=== PATIENT | female | born 1935 | race Caucasian/White ===

== ENCOUNTER → 2016-08-17 | Outpatient (CLI) | payer OTHER ==
[~2016-08-17] MED LIST: ACT/35 PO; AMLO5TAB2 PO; ATOR-14 PO; ATROPO OPL; CALC600T9 PO; CALCIUM 600 MG PO; DORZ1SOL6 OP; DORZ2SOL17 OPL; GLUC15002 PO; KLOR CON 20 MEQ PO; LATA0.5S OP; LEVO112T2 PO; LEVO125T4; MULT-506 PO; NITR0.4S UT; OFLO0.3S4 OPL; POTA20TA16 PO; TRIATAB3 PO; VALS40TA2 PO; [UNRECOGNIZED DRUG - OTHER] PO
[2016-08-17 10:42] LABS: T3 TOTAL 0.87 ng/ml (0.60-1.81)
[2016-08-17 10:48] LABS: THYROXINE (T4) 8.8 mcg/dl (4.5-10.9)
== END | disposition home or self-care (01) ==
LOC: C.LABFOXMH 10:04
PROVIDERS: ATTEND Internal Medicine
DX: E03.9 Hypothyroidism, unspecified (principal)

== ENCOUNTER → 2017-01-15 | Outpatient (CLI) | payer OTHER ==
[~2017-01-15] MED LIST changes: -LEVO125T4; +LEVO125T5
[2017-01-15 09:05] LABS: ALT/SGPT 24 U/L (12-78); BLOOD UREA NITROGEN 30 mg/dl (7-18); BUN/CREATININE RATIO 27.3 (10-20); CARBON DIOXIDE 29 mmol/L (21-32); CHLORIDE 109 mmol/L (98-107); CHOLESTEROL 161 mg/dl (0-200); GLUCOSE 88 mg/dl (70-99); POTASSIUM 4.5 mmol/L (3.5-5.1); SODIUM 146 mmol/L (136-145)
[2017-01-15 09:08] LABS: ALB/GLOB RATIO 1.3 (0.9-2); ALKALINE PHOSPHATASE 56 U/L (45-117); AST/SGOT 19 U/L (15-37); CHOLESTEROL/HDL RATIO 2.1; HDL CHOLESTEROL 77 mg/dl; LDL CHOLESTEROL CALCULATED 69 mg/dl; TRIGLYCERIDES 74 mg/dl (0-150); VERY LOW DENSITY LIPOPROT CALC 15 mg/dl
[2017-01-15 09:29] LABS: CALCIUM 9.1 mg/dl (8.5-10.1)
== END ==
LOC: C.LABFOXMH 08:24
PROVIDERS: ATTEND Internal Medicine
DX: E78.5 Hyperlipidemia, unspecified (principal)

== ENCOUNTER → 2017-02-22 | Outpatient (CLI) | payer OTHER ==
[~2017-02-22] MED LIST changes: +LEVO125T4; -LEVO125T5
== END | disposition home or self-care (01) ==
LOC: C.MAMM 13:14
PROVIDERS: ATTEND Internal Medicine
DX: M85.851 Other specified disorders of bone density and structure, right thigh (principal); M85.852 Other specified disorders of bone density and structure, left thigh

== ENCOUNTER → 2017-04-19 | Day surgery (SDC) | payer OTHER ==
[2017-04-14 10:18] VITALS: BMI 33.0
[~2017-04-19] VITALS: Ht 147.3 cm; Wt 71.8 kg
[~2017-04-19] MED LIST changes: -ATROPO OPL; -CALCIUM 600 MG PO; -DORZ2SOL17 OPL; -KLOR CON 20 MEQ PO; -LEVO125T4; +LIDOCAINE HCL 2% 2 ML VIAL (20MG/ML) ONE; +MIDAZOLAM HCL 1 MG/ML 2ML VIAL ONE; -OFLO0.3S4 OPL; +ONDANSETRON INJ 2 MG/ML 2 ML VIAL ONE; +PROPOFOL IV EMULSION 10 MG/ML 20 ML VIAL IV ONE; -[UNRECOGNIZED DRUG - OTHER] PO
[2017-04-19 12:33] VITALS: Ht 147.3 cm; Wt 71.8 kg
--- NOTE | 2017-04-19 13:10 | Endo History and Physical ---
History & Physical Date of Service: Apr 19, 2017. Chief Complaint: HEMATOCHEZIA, CHANGE IN BOWEL HABITS Referring Physician: DR. LESTER LOYD History of Present Illness For colonoscopy Past Surgical History Hx Cardiac Surgery: No Hx Internal Defibrillator: No Hx Pacemaker: No Hx Abdominal Surgery: No Hx of Implantable Prosthesis: No Hx Post-Op Nausea and Vomiting: No Hx Cancer Surgery: Yes (GARETT BSO (KNICKED BOWELS), BCC REMOVALS) Hx Thoracic Surgery: No Hx Orthopedic: Yes (LOWER BACK FUSION) Hx Urinary Tract Surgery: Yes (BLADDER SLING) Family History None Social History Smoking Status: Never Smoker Hx Substance Use: No Hx Alcohol Use: No Allergies Coded Allergies: No Known Allergies (Verified , 04/19/17) Current Medications Reported Home Medications Medications Dose Route/Sig Max Daily Dose Days Date Category Klor-Con (Potassium Chloride) 20 Meq Tabcr 20 Meq PO QAM 04/14/17 Reported Actonel (Risedronate Sod) 35 Mg Tab 35 Mg PO WK 04/14/17 Reported Calcium + D (Calcium Carbonate-Vitamin D) 1 Tab Tab 1 Tab PO BID 04/14/17 Reported Cosopt Oph (Dorzolamide Hcl-Timolol Maleat) 1 Jessie Jessie 1 Drop OP BID 04/14/17 Reported Xalatan 0.005% Oph Jessie (Latanoprost) 0.005 % Jessie 1 Drops OP HS 04/14/17 Reported Synthroid (Levothyroxine Sodium) 112 Mcg Tab 112 Mcg PO QAM 04/14/17 Reported Triamterene/Hctz 37.5-25MG (Triamterene/HCTZ) 1 Tab Tab 0.5 Tab PO BID 09/07/14 Reported Nitrostat (Nitroglycerin) 0.4 Mg Sub 0.4 Mg UT PRN 02/02/13 Reported Norvasc (Amlodipine Besylate) 5 Mg Tab 5 Mg PO QAM 02/02/13 Reported Diovan (Valsartan) 40 Mg Tab 40 Mg PO BID 02/02/13 Reported Glucosamine 1500 Complex (Enwrkzricoi-Hydybgjsmwv-Oci C-) 1 Cap Cap 1 Capsule PO QAM 02/02/13 Reported Lipitor (Atorvastatin) 10 Mg Tab 0.5 Tab PO HS 02/02/13 Reported Multivitamin (Multivitamins) Tab 1 Tab PO QAM 02/02/13 Reported Vital Signs Weight (Kilograms): 71.82 Height (Feet): 4 Height (Inches): 10 Date Time Temp Pulse Resp B/P (MAP) Pulse Ox O2 Delivery O2 Flow Rate FiO2 04/19/17 12:51 36.7 64 18 117/60 (79) 96 Room Air Physical Exam General Appearance: + obese Respiratory/Chest: Respiratory effort: no dyspnea Cardiovascular: Heart Auscultation: RRR Abdomen: Inspection & Palpation: soft Assessment and Plan Rectal bleeding for colonoscopy
--- NOTE | 2017-04-19 13:56 | Discharge Instructions ---
Endoscopy Patient Instructions Date / Procedure(s) Performed Apr 19, 2017. Colonoscopy Allergy Information Coded Allergies: No Known Allergies (Verified , 04/19/17) Discharge Date / Findings Apr 19, 2017. Normal colonoscopy Medication Instructions Stopped Medication(s): TOLD TO JUST TAKE HEART MEDICATIONS Restart Stopped Medication(s): resume meds Reported Home Medications Medications Dose Route/Sig Max Daily Dose Days Date Category Klor-Con (Potassium Chloride) 20 Meq Tabcr 20 Meq PO QAM 04/14/17 Reported Actonel (Risedronate Sod) 35 Mg Tab 35 Mg PO WK 04/14/17 Reported Calcium + D (Calcium Carbonate-Vitamin D) 1 Tab Tab 1 Tab PO BID 04/14/17 Reported Cosopt Oph (Dorzolamide Hcl-Timolol Maleat) 1 Jessie Jessie 1 Drop OP BID 04/14/17 Reported Xalatan 0.005% Oph Jessie (Latanoprost) 0.005 % Jessie 1 Drops OP HS 04/14/17 Reported Synthroid (Levothyroxine Sodium) 112 Mcg Tab 112 Mcg PO QAM 04/14/17 Reported Triamterene/Hctz 37.5-25MG (Triamterene/HCTZ) 1 Tab Tab 0.5 Tab PO BID 09/07/14 Reported Nitrostat (Nitroglycerin) 0.4 Mg Sub 0.4 Mg UT PRN 02/02/13 Reported Norvasc (Amlodipine Besylate) 5 Mg Tab 5 Mg PO QAM 02/02/13 Reported Diovan (Valsartan) 40 Mg Tab 40 Mg PO BID 02/02/13 Reported Glucosamine 1500 Complex (Eyojoixrzbm-Cglxzxeigmj-Fbo C-) 1 Cap Cap 1 Capsule PO QAM 02/02/13 Reported Lipitor (Atorvastatin) 10 Mg Tab 0.5 Tab PO HS 02/02/13 Reported Multivitamin (Multivitamins) Tab 1 Tab PO QAM 02/02/13 Reported Provider Instructions Activity Restrictions - No exercising or heavy lifting for 24 hours. - Do not drink alcohol the day of the procedure. - Do not drive a car or operate machinery until the day after the procedure. - Do not make any important decisions or sign important papers in 24 hours after the procedure. Following Day: - Return to full activity which may include returning to work/school. Diet Start your diet with liquids and light foods (jello, soup, juice, toast). Then eat your usual diet if not nauseated. Treatment For Common After Affects For mild abdominal pain, bloating, or excessive gas: - Rest - Eat lightly - Lie on right side Follow-Up Information Follow-up with DR. LESTER LOYD as scheduled Anesthesia Information What You Should Know You have had a procedure that required some medicine to reduce anxiety and discomfort. This treatment is called moderate sedation. After receiving the treatment, you may be sleepy, but you will be able to breathe on your own. The effects of the treatment may last for several hours. Follow these instructions along with Activity/Diet recommendations noted above: * Do NOT do anything where dizziness or clumsiness would be dangerous. * Rest quietly at home today, then you can be up and about tomorrow. * Have a responsible person stay with you the rest of today. * You may have had an I.V. today. If so, you may take the dressing off later today. Recommendations Call your doctor if: * Trouble breathing * Continuous vomiting for more than 24 hours * Temperature above 101 degrees * Severe abdominal pain or bloating * Pain not relieved by pain medicine ordered * There is increased drainage or redness from any incision * A large amount of rectal bleeding greater than 2-3 tablespoons. (If you had a polyp/s removed or have hemorrhoids, a small amount of blood - from the rectum is to be expected.) * You have any unanswered questions or concerns. IN THE EVENT OF A SERIOUS EMERGENCY, GO TO THE NEAREST EMERGENCY ROOM Your discharge instructions were prepared by provider Mike Mancilla. Patient Instructions Signature Page Danisha Lemons Patient (or Guardian) Signature/Date: I have read and understand the instructions given to me by my caregivers. Caregiver/RN/Doctor Signature/Date: The above-named patient and/or guardian has received patient instructions on this date. + Original Patient Signature Page (only) stays with chart. Please make copy for patient.
--- NOTE | 2017-04-19 13:58 | Anesthesiology Progress Note ---
Anesthesia Post Op Note Date & Time Apr 19, 2017 at 13:58 Vital Signs Pain Intensity: 0 Vital Signs Past 12 Hours Date Time Temp Pulse Resp B/P (MAP) Pulse Ox O2 Delivery O2 Flow Rate FiO2 04/19/17 12:51 36.7 64 18 117/60 (79) 96 Room Air Notes Mental Status: alert / awake / arousable, participated in evaluation Pt Amnestic to Procedure: Yes Nausea / Vomiting: adequately controlled Pain: adequately controlled Airway Patency, RR, SpO2: stable & adequate BP & HR: stable & adequate Hydration State: stable & adequate Anesthetic Complications: no major complications apparent
--- NOTE | 2017-04-19 14:00 | GI REPORT ---
Procedure Date: 04/19/2017 12:50 PM Procedure: Colonoscopy Indications: Rectal bleeding, Change in bowel habits Medicines: Zofran 4 mg IV, Propofol total dose 150 mg IV, Lidocaine 60 mg IV Complications: No immediate complications. Estimated Blood Loss: Estimated blood loss: none. Procedure: Pre-Anesthesia Assessment: - Prior to the procedure, a History and Physical was performed, and patient medications, allergies and sensitivities were reviewed. The patient's tolerance of previous anesthesia was reviewed. - The risks and benefits of the procedure and the sedation options and risks were discussed with the patient. All questions were answered and informed consent was obtained. After I obtained informed consent, the scope was passed under direct vision. Throughout the procedure, the patient's blood pressure, pulse, and oxygen saturations were monitored continuously. The scope was introduced through the anus and advanced to the cecum, identified by appendiceal orifice and ileocecal valve. The colonoscopy was performed without difficulty. The patient tolerated the procedure well. The quality of the bowel preparation was excellent. Findings: The entire examined colon appeared normal. Impression: - The entire examined colon is normal. - No specimens collected. Recommendation: - Discharge patient to home (ambulatory). - Continue present medications. - Return to primary care physician PRN. Mike Mancilla M.D. Mike Mancilla MD 04/19/2017 1:59:52 PM This report has been signed electronically. Note Initiated On: 04/19/2017 12:50 PM I attest to the content of the Intraoperative Record and orders documented therein, exceptions below
[2017-04-19 14:15] VITALS: BP 114/67; PULSE 55; O2SAT 98
== END | disposition home or self-care (01) ==
LOC: C.GI 12:09
PROVIDERS: ATTEND Internal Medicine Gastroenterology
DX: K62.5 Hemorrhage of anus and rectum (principal); R19.4 Change in bowel habit; Z79.899 Other long term (current) drug therapy

== ENCOUNTER → 2017-05-20 | Outpatient (CLI) | payer OTHER ==
[~2017-05-20] MED LIST changes: -LIDOCAINE HCL 2% 2 ML VIAL (20MG/ML) ONE; -MIDAZOLAM HCL 1 MG/ML 2ML VIAL ONE; -ONDANSETRON INJ 2 MG/ML 2 ML VIAL ONE; -PROPOFOL IV EMULSION 10 MG/ML 20 ML VIAL IV ONE
[2017-05-20 09:19] LABS: HEMATOCRIT 41.6 % (37-47); MEAN CELL VOLUME 91.4 fL (80-100); MEAN CORPUSCULAR HGB CONC 33.9 g/dl (32-36); MEAN PLATELET VOLUME 9.9 fL (7.4-10.4); PLATELET COUNT 196 K/uL (130-400); RED BLOOD COUNT 4.55 M/uL (4.2-5.4); WHITE BLOOD COUNT 5.17 K/uL (4.8-10.8)
[2017-05-20 09:26] LABS: BLOOD UREA NITROGEN 23 mg/dl (7-18); BUN/CREATININE RATIO 22.9 (10-20); CALCIUM 9.3 mg/dl (8.5-10.1); CARBON DIOXIDE 29 mmol/L (21-32); CHLORIDE 106 mmol/L (98-107); GLUCOSE 90 mg/dl (70-99); POTASSIUM 3.5 mmol/L (3.5-5.1); SODIUM 140 mmol/L (136-145)
[2017-05-21 18:12] LABS: ALBUMIN 4.4 G/DL (3.8-4.8); GAMMA GLOBULIN 0.6 G/DL (0.8-1.7); TOTAL PROTEIN 6.4 G/DL (6.2-8.3)
== END | disposition home or self-care (01) ==
LOC: C.LABFOXMH 08:46
PROVIDERS: ATTEND Internal Medicine
DX: G60.9 Hereditary and idiopathic neuropathy, unspecified (principal); R06.02 Shortness of breath

== ENCOUNTER → 2017-05-25 | Outpatient (CLI) | payer OTHER | END | disposition home or self-care (01) | LOC: C.LABFOXMH 13:43 | PROVIDERS: ATTEND Internal Medicine | DX: G62.9 Polyneuropathy, unspecified (principal) ==

== ENCOUNTER → 2017-06-23 | Outpatient (CLI) | payer OTHER ==
[2017-06-23 08:55] LABS: BLOOD UREA NITROGEN 21 mg/dl (7-18); BUN/CREATININE RATIO 20.3 (10-20); CALCIUM 9.8 mg/dl (8.5-10.1); CARBON DIOXIDE 30 mmol/L (21-32); CHLORIDE 103 mmol/L (98-107); CREATININE 1.04 mg/dl (0.60-1.20); GLUCOSE 97 mg/dl (70-99); POTASSIUM 4.4 mmol/L (3.5-5.1); SODIUM 139 mmol/L (136-145)
[2017-06-23 08:59] LABS: HEMATOCRIT 44.2 % (37-47); MEAN CELL VOLUME 94.2 fL (80-100); MEAN CORPUSCULAR HEMOGLOBIN 31.6 pg (25-34); MEAN CORPUSCULAR HGB CONC 33.5 g/dl (32-36); MEAN PLATELET VOLUME 9.8 fL (7.4-10.4); PLATELET COUNT 240 K/uL (130-400); RED BLOOD COUNT 4.69 M/uL (4.2-5.4); WHITE BLOOD COUNT 8.84 K/uL (4.8-10.8)
== END ==
LOC: C.LABFOXMH 07:43
PROVIDERS: ATTEND Internal Medicine
DX: R06.02 Shortness of breath (principal)

== ENCOUNTER → 2017-09-08 | Outpatient (CLI) | payer OTHER ==
[2017-09-08 08:47] LABS: HEMATOCRIT 41.3 % (37-47); HEMOGLOBIN 13.9 g/dL (12.0-16.0); MEAN CELL VOLUME 94.1 fL (80-100); MEAN CORPUSCULAR HEMOGLOBIN 31.7 pg (25-34); MEAN CORPUSCULAR HGB CONC 33.7 g/dl (32-36); MEAN PLATELET VOLUME 10.1 fL (7.4-10.4); PLATELET COUNT 216 K/uL (130-400); RED CELL DISTRIBUTION WIDTH SD 45.2 fL (36.4-46.3); WHITE BLOOD COUNT 6.58 K/uL (4.8-10.8)
[2017-09-08 08:59] LABS: ALBUMIN 3.8 gm/dl (3.4-5.0); ALT/SGPT 26 U/L (12-78); BLOOD UREA NITROGEN 21 mg/dl (7-18); CALCIUM 9.3 mg/dl (8.5-10.1); CARBON DIOXIDE 28 mmol/L (21-32); CREATININE 1.06 mg/dl (0.60-1.20); GLUCOSE 90 mg/dl (70-99); POTASSIUM 4.3 mmol/L (3.5-5.1); SODIUM 141 mmol/L (136-145)
[2017-09-08 09:10] LABS: ALKALINE PHOSPHATASE 50 U/L (45-117); AST/SGOT 20 U/L (15-37); TOTAL PROTEIN 6.5 gm/dl (6.4-8.2)
== END | disposition home or self-care (01) ==
LOC: C.LABFOXMH 08:06
PROVIDERS: ATTEND Internal Medicine
DX: I10 Essential (primary) hypertension (principal); E03.9 Hypothyroidism, unspecified

== ENCOUNTER → 2017-09-20 | Outpatient (CLI) | payer OTHER ==
[2017-09-20 08:38] LABS: BLOOD UREA NITROGEN 25 mg/dl (7-18); CALCIUM 9.8 mg/dl (8.5-10.1); CARBON DIOXIDE 29 mmol/L (21-32); CREATININE 1.05 mg/dl (0.60-1.20); GLUCOSE 90 mg/dl (70-99); POTASSIUM 4.3 mmol/L (3.5-5.1); SODIUM 140 mmol/L (136-145)
== END | disposition home or self-care (01) ==
LOC: C.LABFOXMH 08:15
PROVIDERS: ATTEND Internal Medicine
DX: I10 Essential (primary) hypertension (principal)

== ENCOUNTER → 2017-11-01 | Outpatient (CLI) | payer OTHER ==
--- NOTE | 2017-11-01 10:04 | DIAGNOSTIC IMAGING REPORT ---
RETROPERITONEAL COMPLETE CLINICAL HISTORY: HX OF CYSTS,HYPERTENSION COMPARISON STUDY: Renal ultrasound February 24, [address] of the abdomen and pelvis February 02, 2013. FINDINGS: The right kidney measures 9.8 cm in maximal dimension and the left measures 9.9 cm. There is no hydronephrosis. Note is made of a 1.1 cm right sided parapelvic cyst. No calculi or solid masses are identified by sonography. Both ureteral jets were identified. The Doppler ultrasound will be reported separately. IMPRESSION: 1. No hydronephrosis. 2. 1.1 cm right-sided parapelvic cysts. Electronically signed by: Kumar Solis M.D. 11/01/2017 10:03 AM Dictated Date/Time: 11/01/2017 10:01 AM
--- NOTE | 2017-11-01 10:07 | DIAGNOSTIC IMAGING REPORT ---
DOPPLER ULTRASOUND OF THE RENAL ARTERIES CLINICAL HISTORY: HX OF CYSTS,HYPERTENSION COMPARISON STUDY: CT of the abdomen and pelvis February 02, 2013. TECHNIQUE: Grayscale and color and duplex Doppler sonography of the abdominal aorta and bilateral renal arteries was performed. FINDINGS: The peak systolic velocity within the abdominal aorta was 74 cm/s. The peak systolic velocity within the right renal artery was 100 cm/s. The mid bilateral renal arteries were obscured due to overlying bowel gas. The peak systolic velocity within the left renal artery was 83 cm/s. Waveforms within the segmental vessels of both kidneys were unremarkable. Both renal veins were patent. IMPRESSION: No elevated velocities identified within the renal arteries although the mid portions of the bilateral renal arteries were obscured due to overlying bowel gas and therefore this exam is technically nondiagnostic for evaluation for renal artery stenosis. However, no elevated velocities or downstream evidence of renal artery stenosis. Electronically signed by: Kumar Solis M.D. 11/01/2017 10:05 AM Dictated Date/Time: 11/01/2017 10:03 AM
[2017-11-01 12:16] LABS: HEMATOCRIT 37.7 % (37-47); HEMOGLOBIN 12.9 g/dL (12.0-16.0); MEAN CELL VOLUME 92.4 fL (80-100); MEAN CORPUSCULAR HEMOGLOBIN 31.6 pg (25-34); MEAN CORPUSCULAR HGB CONC 34.2 g/dl (32-36); MEAN PLATELET VOLUME 9.8 fL (7.4-10.4); PLATELET COUNT 221 K/uL (130-400); RED CELL DISTRIBUTION WIDTH CV 13.1 % (11.5-14.5); RED CELL DISTRIBUTION WIDTH SD 44.2 fL (36.4-46.3); WHITE BLOOD COUNT 9.43 K/uL (4.8-10.8)
[2017-11-01 12:39] LABS: ALBUMIN 3.8 gm/dl (3.4-5.0); BLOOD UREA NITROGEN 19 mg/dl (7-18); CARBON DIOXIDE 28 mmol/L (21-32); CREATININE 1.05 mg/dl (0.60-1.20); GLUCOSE 87 mg/dl (70-99); POTASSIUM 3.4 mmol/L (3.5-5.1); SODIUM 136 mmol/L (136-145)
[2017-11-01 12:50] LABS: ALKALINE PHOSPHATASE 53 U/L (45-117); ALT/SGPT 22 U/L (12-78); AST/SGOT 21 U/L (15-37); TOTAL PROTEIN 6.8 gm/dl (6.4-8.2)
== END | disposition home or self-care (01) ==
LOC: C.ULTR 08:41
PROVIDERS: ATTEND Internal Medicine
DX: N28.1 Cyst of kidney, acquired (principal); I10 Essential (primary) hypertension

== ENCOUNTER 2023-02-22 10:54 | Observation (INO) ==
[2023-02-22] MEDS ORDERED: ONDANSETRON INJ 2 MG/ML 2 ML VIAL IV STA (11:07)
[2023-02-22] MEDS ORDERED: MoRPHine SULFATE 2 MG/ML CARP IV STA (11:07)
--- NOTE | 2023-02-22 11:09 | Emergency Department Note ---
Impression & Plan Chest pain, D dimer value normal ED Provider Note NAME: ANABEL CANO AGE: 87 SEX: F : 1935 ARRIVES VIA: Ambulance INFORMANT: Patient, EMS ED PROVIDER(S): Varun Butt DO CHIEF COMPLAINT: Chest pain HPI: The patient is an 87-year-old female who presented to the emergency department for an evaluation of chest pain. The patient describes left-sided anterior chest pain that worsens with deep breathing. The patient states that she cannot take a deep breath because of the pain. She has had no vomiting. She denies having any back pain or abdominal pain. The patient started having discomfort last evening. She states that she alerted the staff at [facility] this morning and she was sent directly to the emergency department. She was given multiple doses of aspirin prior to arrival with some improvement of her symptoms. The patient refuses to take aspirin at this time because of a family history of hemorrhagic stroke. ROS: See above HPI for pertinent positives & negatives. A total of 10 systems reviewed and were otherwise negative. PAST MEDICAL HISTORY: See Below PAST SURGICAL HISTORY: See Below FAMILY HISTORY: See Below SOCIAL HISTORY: See Below HOME MEDICATIONS: See Below ALLERGIES: See Below VITALS: See Below PHYSICAL EXAMINATION: GENERAL: The patient is awake and alert. She is very anxious and appears to be uncomfortable. EYES: The conjunctivae are clear. The pupils are round and reactive. EARS, NOSE, MOUTH AND THROAT: The nose is without any evidence of any deformity. NECK: The neck is nontender and supple. RESPIRATORY: Splinting respirations were noted with diminished breath sounds in the left lung field. CARDIOVASCULAR: Regular rate and rhythm noted there no murmurs rubs or gallops normal S1 normal S2. GASTROINTESTINAL: The abdomen is soft. Abdomen is nontender. MUSCULOSKELETAL/EXTREMITIES: There is no evidence of gross deformity full range of motion is noted in the hips and shoulders. SKIN: Skin is warm and dry. Trace pedal edema was noted bilaterally. NEUROLOGIC: Patient is awake alert and oriented x3 MEDICAL DECISION MAKING: The patient is an 87-year-old female who presented to the emergency department for an evaluation of chest pain. The patient describes left-sided chest pain. It was very pleuritic in nature and severe. She was given nitroglycerin prior to arrival as well as by the prehospital personnel. When she arrived at the hospital she still had pain. The patient was treated with Tylenol in the emergency department. She did not want anything stronger for pain. She refused to take aspirin. I discussed patient's laboratory and radiographic studies with her. Her D-dimer was elevated which prompted a CTA of the chest for rule out pulmonary embolism. This did not show any signs of pulmonary embolism. The patient was found to have a normal troponin. I discussed the patient's condition with her. I discussed the limitations of the emergency department work-up for chest pain with her. Given her age and comorbidities as well as her response to nitroglycerin I discussed her condition with the on-call [facility] hospitalist. They have agreed to evaluate the patient in the emergency department for further management and disposition. Triage Nursing notes reviewed. Prior medical records reviewed Vital Signs: reviewed and remarkable for no significant abnormalities Differential diagnosis: Cardiac ischemia, aortic dissection, pulmonary embolism, pneumothorax, pneumonia, pericarditis, myocarditis, esophageal rupture, GERD, cholecystitis, pancreatitis, musculoskeletal, as well as other pathologies. ER treatment provided: See below Diagnostics interpreted by me: ECG: EKG was obtained in the emergency department. My interpretation is normal sinus rhythm at 81 bpm. First-degree AV block was noted. Poor R wave progression was noted. There is no PVCs. This was compared to a tracing from September 12, 2020. No changes were noted. Prehospital EKG was reviewed. My interpretation is sinus rhythm at 83 bpm. First-degree AV block was noted. There is no ST segment abnormalities. This compares similar to the tracing obtained in the emergency department. Cardiac Monitoring: An order was placed for continuous cardiac monitoring. The monitor shows a rate of 62 bpm with sinus rhythm. Laboratory studies: As stated above and show below. Imaging studies: See below. Radiographic imaging was reviewed by myself Consultation(s): I discussed this case with Alice who is covering for the [facility]. Past Med/Surg History Medical History Closed left hip fracture Fall Fracture of femoral neck, right Glaucoma Hyperlipidemia (02/02/13) Hypertension Hypothyroidism (02/02/13) Osteoporosis Urge and stress incontinence Uterine cancer (02/02/13) 1997 s/p hysterectomy Surgical History H/O eye surgery laser History of back surgery Approximately 1980 History of hip replacement History of hysterectomy 1998 History of trabeculectomy x2 Hx of tonsillectomy [place] teeth extracted Family History Mother Cerebral aneurysm Stroke Grandfather Cerebral aneurysm Grandfather Stroke Aunt Stroke Family/Other Stroke niece Grandmother (Paternal) Stomach cancer Other Hypertension No family history of adverse response to anesthesia No family history of bleeding disorder Denies family history of Ovarian cancer Breast cancer Social History Smoking Status: Never smoker Do You Dip or Chew Tobacco: No; Hx Alcohol Use: No Hx Substance Use: No Preferred Language: Greek Communication Ability: Effective Beliefs That Will Affect Care: None Current Living Situation: Spouse current occupational status: retired Feels Safe at Home: Yes Assistive Devices: Glasses and Walker Allergies Allergies Allergy/AdvReac Type Severity Reaction Status Date / Time GOOD Inhibitors Allergy Intermediate Unknown Verified 02/22/23 11:59 adhesive tape Allergy Intermediate Blister Unverified 02/22/23 11:59 alendronate sodium Allergy Unknown Unknown Verified 02/22/23 11:59 [From Fosamax] cephalexin [From Keflex] Allergy Unknown Unknown Verified 02/22/23 11:59 guaifenesin Allergy Unknown Unknown Verified 02/22/23 11:59 Benzalkonium chloride (NIC) Allergy Intermediate Unknown Uncoded 02/22/23 11:59 Home Meds Home Medications Medication Instructions Recorded Confirmed clonidine 0.2 mg/24 hr weekly 1 patch topical WEEKLY 04/19/19 02/22/23 transdermal patch multivitamin (Daily Multi-Vitamin 1 tab PO QAM 05/25/19 02/22/23 tablet) calcium carbonate 500 mg-vitamin 1 tab PO BID 09/12/20 02/22/23 D3 10 mcg (400 unit) tablet (Calcium 500 + D) dorzolamide 2 %-timolol 0.5 % (PF) 1 drp OPB AMPM 09/12/20 02/22/23 eye drops glucosamine 750 [id number] 1 tab PO BID 09/12/20 02/22/23 no1 644 mg-C 30 mg-ev 1 mg tablet (Osteo Bi-Flex Triple Strength) tafluprost (PF) 0.0015 % eye drops 1 drp OPR HS 09/12/20 02/22/23 in a dropperette (Zioptan (PF)) cholecalciferol (vitamin D3) 50 50 mcg PO DAILY 12/18/21 02/22/23 mcg (2,000 unit) capsule vitamin E (dl, acetate) 45 mg (100 45 mg PO DAILY 12/18/21 02/22/23 unit) capsule denosumab 60 mg/mL subcutaneous 60 mg subcut .EVERY 6 MONTHS 12/25/21 02/22/23 syringe (Prolia) econazole 1 % topical cream 1 applic topical DAILY 12/25/21 02/22/23 atorvastatin 10 mg tablet (Lipitor) 10 mg PO HS 02/22/23 02/22/23 hydralazine 10 mg tablet 10 mg PO TID SBP>160 02/22/23 02/22/23 levothyroxine 100 mcg tablet 100 mcg PO QAM 02/22/23 02/22/23 (Synthroid) olmesartan 20 mg tablet 20 mg PO QAM 02/22/23 02/22/23 olmesartan 5 mg tablet 10 mg PO .PM AND HS 02/22/23 02/22/23 Previous Rx's Medication Instructions Recorded hydrocortisone 1 % topical ointment 1 applic EXT BID PRN itching #28 09/21/20 grams Results & Data (ED) Vital Signs Vital Signs - 24 hr 02/22/23 11:21 02/22/23 11:22 02/22/23 11:26 Temperature 37.1 C Temperature Source Oral Pulse Rate 68 83 83 Pulse Rate [Bilateral] Respiratory Rate 20 20 Blood Pressure 122/88 Blood Pressure [Right Arm] Blood Pressure Mean 99 Blood Pressure Mean [Right Arm] Pulse Oximetry 95 93 Oxygen Delivery Method Room Air Room Air Sepsis Recent Fever Within 48 Hours No Sepsis New/Unexplained Change in Mental Status No Sepsis Action Taken by Nursing No Action Required 02/22/23 11:27 02/22/23 13:09 02/22/23 15:00 Temperature 37.1 C Temperature Source Oral Pulse Rate Pulse Rate [Bilateral] 83 67 65 Respiratory Rate 20 16 18 Blood Pressure Blood Pressure [Right Arm] 122/88 128/61 161/93 H Blood Pressure Mean Blood Pressure Mean [Right Arm] 99 83 115 Pulse Oximetry 93 96 97 Oxygen Delivery Method Room Air Room Air Sepsis Recent Fever Within 48 Hours Sepsis New/Unexplained Change in Mental Status Sepsis Action Taken by Skilled Nursing Medications Current Medication List: was personally reviewed by me Laboratory Data Attestation: I reviewed the patient's lab results. 02/22/23 11:13 02/22/23 11:13 Lab Results 02/22/23 02/22/23 02/22/23 Range/Units 11:13 11:13 11:13 WBC 10.29 (4.8-10.8) K/ul RBC 4.57 (4.20-5.40) M/uL Hgb 14.2 (12.0-16.0) g/dl Hct 41.3 (37.0-47.0) % MCV 90.4 (80.0-100.0) fL MCH 31.1 (25.0-34.0) pg MCHC 34.4 (32.0-36.0) g/dL RDW Std Deviation 44.5 (36.4-46.3) fL RDW Coeff of Colin 13.4 (11.5-14.5) % Plt Count 219 (130-400) K/uL MPV 9.8 (9.4-12.4) fL Immature Gran % (Auto) 0.4 % Neut % (Auto) 67.2 % Lymph % (Auto) 20.6 % Sierra % (Auto) 9.1 % Eos % (Auto) 2.2 % Baso % (Auto) 0.5 % Neut # (Auto) 6.91 H (1.40-6.50) K/uL Lymph # (Auto) 2.12 (1.2-3.4) K/uL Sierra # (Auto) 0.94 H (0.11-0.59) K/uL Eos # (Auto) 0.23 (0-0.50) K/uL Baso # (Auto) 0.05 (0-0.2) K/uL Immature Gran # (Auto) 0.04 (0.01-0.20) K/uL PT 10.5 (9.0-12.0) Seconds INR 1.0 (0.9-1.1) APTT 24.7 (21.0-31.0) Seconds PTT Ratio 0.9 D-Dimer 560 H* (0-500) ug/L FEU Sodium 140 (136-145) mmol/L Potassium 3.7 (3.5-5.1) mmol/L Chloride 108 H (98-107) mmol/L Carbon Dioxide 26 (21-32) mmol/L Anion Gap 6 (3-11) BUN 23 (6-23) mg/dl Creatinine 0.84 (0.6-1.2) mg/dl Est Cr Clr Drug Dosing 41.7 ml/min Est GFR ( Amer) 71.9 ml/min Est GFR (Non-Af Amer) 62.1 ml/min BUN/Creatinine Ratio 27.4 H (10-20) Glucose 104 H (70-99(Fasting)) mg/dl Calcium 9.4 (8.6-10.3) mg/dl Total Bilirubin 1.1 H (0.2-1.0) mg/dl AST 19 (13-39) U/L ALT 14 (7-52) U/L Alkaline Phosphatase 44 (34-104) U/L Troponin I High Sens 11.1 (0-14) pg/ml Total Protein 6.9 (6.0-8.3) gm/dl Albumin 4.5 (3.4-5.0) gm/dl Globulin 2.4 L (2.5-4.0) gm/dl Albumin/Globulin Ratio 1.9 (0.9-2) Lipase 27 (11-82) U/L SARS-CoV-2, RNA, NAAT (NEGATIVE) 02/22/23 Range/Units 11:20 WBC (4.8-10.8) K/ul RBC (4.20-5.40) M/uL Hgb (12.0-16.0) g/dl Hct (37.0-47.0) % MCV (80.0-100.0) fL MCH (25.0-34.0) pg MCHC (32.0-36.0) g/dL RDW Std Deviation (36.4-46.3) fL RDW Coeff of Colin (11.5-14.5) % Plt Count (130-400) K/uL MPV (9.4-12.4) fL Immature Gran % (Auto) % Neut % (Auto) % Lymph % (Auto) % Sierra % (Auto) % Eos % (Auto) % Baso % (Auto) % Neut # (Auto) (1.40-6.50) K/uL Lymph # (Auto) (1.2-3.4) K/uL Sierra # (Auto) (0.11-0.59) K/uL Eos # (Auto) (0-0.50) K/uL Baso # (Auto) (0-0.2) K/uL Immature Gran # (Auto) (0.01-0.20) K/uL PT (9.0-12.0) Seconds INR (0.9-1.1) APTT (21.0-31.0) Seconds PTT Ratio D-Dimer (0-500) ug/L FEU Sodium (136-145) mmol/L Potassium (3.5-5.1) mmol/L Chloride (98-107) mmol/L Carbon Dioxide (21-32) mmol/L Anion Gap (3-11) BUN (6-23) mg/dl Creatinine (0.6-1.2) mg/dl Est Cr Clr Drug Dosing ml/min Est GFR ( Amer) ml/min Est GFR (Non-Af Amer) ml/min BUN/Creatinine Ratio (10-20) Glucose (70-99(Fasting)) mg/dl Calcium (8.6-10.3) mg/dl Total Bilirubin (0.2-1.0) mg/dl AST (13-39) U/L ALT (7-52) U/L Alkaline Phosphatase (34-104) U/L Troponin I High Sens (0-14) pg/ml Total Protein (6.0-8.3) gm/dl Albumin (3.4-5.0) gm/dl Globulin (2.5-4.0) gm/dl Albumin/Globulin Ratio (0.9-2) Lipase (11-82) U/L SARS-CoV-2, RNA, NAAT NEGATIVE (NEGATIVE) Administered Medications Discontinued Medications Acetaminophen (Ofirmev) 1,000 mg in 100 mls @ 400 mls/hr IV NOW STA Stop: 02/22/23 11:44 Last Infusion: 02/22/23 11:58 Dose: 0 mls/hr Documented By: Admin: 02/22/23 11:39 Dose: 400 mls/hr Documented By: CAROLYNN Ioversol (Optiray 320 125ml) 119 ml IV ONCE ONE Stop: 02/22/23 12:59 Last Admin: 02/22/23 12:57 Dose: 119 ml Documented By: EMELIA Morphine Sulfate (Morphine Sulfate 2 Mg/Ml Carp) 2 mg IV NOW STA Stop: 02/22/23 11:08 Last Admin: 02/22/23 11:40 Dose: Not Given Documented By: TBS Ondansetron HCl (Ondansetron Inj 2 Mg/Ml 2 Ml Vial) 4 mg IV NOW STA Stop: 02/22/23 11:08 Last Admin: 02/22/23 11:39 Dose: Not Given Documented By: TBS Imaging Data Attestation: I personally reviewed and interpreted this imaging study as follows: My Impression: 1 view chest x-ray was obtained in the emergency department. My interpretation is no free air or definite infiltrate, final report below. Radiologist's Impression: Chest X-Ray 02/22/23 11:07 XR chest 1V portable CLINICAL HISTORY: Chest pain, nonspecific COMPARISON STUDY: Chest radiograph December 23, 2021. FINDINGS: Lung volumes are normal. Lungs are clear. There is no pneumothorax or pleural effusion. Cardiac size is normal. Mediastinal contours are normal. There is no evidence for pulmonary edema. IMPRESSION: No acute cardiopulmonary findings. ACT 112: Negative or not required by law. Electronically signed by: Kumar Solis M.D. 02/22/2023 11:33 AM Chest CTA 02/22/23 12:20 CHEST CTA for PULMONARY ARTERIES CT DOSE: 609.74 mGy.cm HISTORY: Atypical chest pain. TECHNIQUE: Multiaxial CT images of the chest were performed following the intravenous administration of contrast to evaluate the pulmonary arteries. 3D/Maximal intensity projection images were also obtained. Sagittal and coronal reformations were also reviewed. A dose lowering technique was utilized adhering to the principles of ALARA. COMPARISON STUDY: Chest CT 02/02/2013. FINDINGS: Normal caliber thoracic aorta with no evidence for a dissection. The heart is mildly enlarged. There is a trace left pleural effusion. No pericardial effusion. Moderate coronary artery calcifications are noted. No filling defects within the pulmonary arteries to suggest a pulmonary embolus. The lingular subsegmental pulmonary arteries are partially obscured by motion artifact. No acute fractures identified. The central airways are patent. There is a small left pneumothorax. Patchy groundglass densities within the lungs likely related to air trapping. This can be seen in the setting of small airways disease. A low-grade pneumonitis is considered less likely but not entirely excluded. A 7 mm nodular density within the right middle lobe on image 69. Mild bronchial wall thickening. Normal caliber esophagus. Limited views of the upper abdomen de monstrate a normal liver and spleen. Normal adrenal glands. No mediastinal or hilar lymphadenopathy. Stable 3 mm nodule within the right middle lobe on image 94. IMPRESSION: 1. No evidence for a pulmonary embolus. 2. Small left hydropneumothorax. 3. Mosaic attenuation within the lungs is likely due to air trapping from small airways disease. A low-grade pneumonitis could also have a similar appearance but is considered less likely. 4. A 7 mm nodule within the right middle lobe. This favors an area of scarring or atelectasis. [address] follow-up can be performed to ensure stability/resolution. ACT 112: Negative or not required by law. Electronically signed by: Sergio Howard M.D. 02/22/2023 1:50 PM Discharge Plan Visit Data Chief Complaint: Chest Pain Stated Complaint: CHEST PAIN ED Provider: Varun Butt Discharge Problem: Chest pain, D dimer value normal Patient Disposition: Admitted As Inpatient Discharge Instructions Interventions: ED Discharge Assessment Last Done: 02/22/23 15:13
[2023-02-22] MEDS ORDERED: ACETAMINOPHEN 1,000 MG/100 ML VIAL IV STA (11:30)
--- NOTE | 2023-02-22 11:35 | XRay Report ---
XR chest 1V portable CLINICAL HISTORY: Chest pain, nonspecific COMPARISON STUDY: Chest radiograph December 23, 2021. FINDINGS: Lung volumes are normal. Lungs are clear. There is no pneumothorax or pleural effusion. Car diac size is normal. Mediastinal contours are normal. There is no evidence for pulmonary edema. IMPRESSION: No acute cardiopulmonary findings. ACT 112: Negative or not required by law. Electronically signed by: Kumar Solis M.D. 02/22/2023 11:33 AM
[2023-02-22 11:37] LABS: Basophils # (auto) 0.05 K/uL (0-0.2); Basophils % (auto) 0.5 %; Eosinophils # (auto) 0.23 K/uL (0-0.50); Eosinophils % (auto) 2.2 %; Hematocrit (blood only) 41.3 % (37.0-47.0); Hemoglobin 14.2 g/dl (12.0-16.0); Immature Granulocytes # (auto) 0.04 K/uL (0.01-0.20); Immature Granulocytes % (auto) 0.4 %; Lymphocytes # (auto) 2.12 K/uL (1.2-3.4); Lymphocytes % (auto) 20.6 %; Mean Corpuscular Hemoglobin 31.1 pg (25.0-34.0); Mean Corpuscular Hgb Conc 34.4 g/dL (32.0-36.0); Mean Corpuscular Volume 90.4 fL (80.0-100.0); Mean Platelet Volume 9.8 fL (9.4-12.4); Monocytes # (auto) 0.94 K/uL (0.11-0.59); Monocytes % (auto) 9.1 %; Neutrophils # (auto) 6.91 K/uL (1.40-6.50); Neutrophils % (auto) 67.2 %; Platelet Count 219 K/uL (130-400); RDW Coefficient of Variation 13.4 % (11.5-14.5); RDW Standard Deviation 44.5 fL (36.4-46.3); Red Blood Count 4.57 M/uL (4.20-5.40); White Blood Count 10.29 K/ul (4.8-10.8)
[2023-02-22 11:55] LABS: Albumin Globulin Ratio 1.9 (0.9-2); Albumin Level 4.5 gm/dl (3.4-5.0); BUN Creatinine Ratio 27.4 (10-20); Bilirubin,Total 1.1 mg/dl (0.2-1.0); Calcium 9.4 mg/dl (8.6-10.3); Creatinine Clr Calc Pharmacy 41.7 ml/min; Est GFR (African American) 71.9 ml/min; Est GFR (Non-African American) 62.1 ml/min; Globulin 2.4 gm/dl (2.5-4.0); Potassium 3.7 mmol/L (3.5-5.1); Total Protein 6.9 gm/dl (6.0-8.3)
[2023-02-22 12:00] LABS: Troponin I High Sensitivity 11.1 pg/ml (0-14)
[2023-02-22 12:03] LABS: Partial Thromboplastin Ratio 0.9; Partial Thromboplastin Time 24.7 Seconds (21.0-31.0); Prothrombin Time 10.5 Seconds (9.0-12.0)
[2023-02-22 12:14] LABS: D Dimer 560 ug/L FEU (0-500)
[2023-02-22] MEDS ORDERED: OPTIRAY 320 125ml IV ONE (12:58)
--- NOTE | 2023-02-22 13:18 | Electrocardiogram Report ---
Test Reason : Blood Pressure : / mmHG Vent. Rate : 081 BPM Atrial Rate : 081 BPM P-R Int : 208 ms QRS Dur : 074 ms QT Int : 368 ms P-R-T Axes : 030 008 056 degrees QTc Int : 427 ms Normal sinus rhythm Low voltage QRS Poor R wave progression, consider anterior WA vs. lead placement vs. LVH Abnormal ECG When compared with ECG of 12-SEP-2020 15:13, No significant change Confirmed by Varun Baeza ([id number]) on 02/22/2023 1:18:40 PM Referred By: Confirmed By:Varun Baeza
--- NOTE | 2023-02-22 13:52 | CT Scan Report ---
CHEST CTA for PULMONARY ARTERIES CT DOSE: 609.74 mGy.cm HISTORY: Atypical chest pain. TECHNIQUE: Multiaxial CT images of the chest were performed following the intravenous administration of contrast to evaluate the pulmonary arteries. 3D/Maximal intensity projection images were also obta ined. Sagittal and coronal reformations were also reviewed. A dose lowering technique was utilized a dhering to the principles of ALARA. COMPARISON STUDY: Chest CT 02/02/2013. FINDINGS: Normal caliber thoracic aorta with no evidence for a dissection. The heart is mildly enlarg ed. There is a trace left pleural effusion. No pericardial effusion. Moderate coronary artery calcifi cations are noted. No filling defects within the pulmonary arteries to suggest a pulmonary embolus. T he lingular subsegmental pulmonary arteries are partially obscured by motion artifact. No acute fract ures identified. The central airways are patent. There is a small left pneumothorax. Patchy groundgla ss densities within the lungs likely related to air trapping. This can be seen in the setting of smal l airways disease. A low-grade pneumonitis is considered less likely but not entirely excluded. A 7 m m nodular density within the right middle lobe on image 69. Mild bronchial wall thickening. Normal ca liber esophagus. Limited views of the upper abdomen demonstrate a normal liver and spleen. Normal adr enal glands. No mediastinal or hilar lymphadenopathy. Stable 3 mm nodule within the right middle lobe on image 94. IMPRESSION: 1. No evidence for a pulmonary embolus. 2. Small left hydropneumothorax. 3. Mosaic attenuation within the lungs is likely due to air trapping from small airways disease. A lo w-grade pneumonitis could also have a similar appearance but is considered less likely. 4. A 7 mm nodule within the right middle lobe. This favors an area of scarring or atelectasis. [address] follow-up can be performed to ensure stability/resolution. ACT 112: Negative or not required by law. Electronically signed by: Sergio Howard M.D. 02/22/2023 1:50 PM
--- NOTE | 2023-02-22 14:10 | History & Physical Report ---
Date of Service February 22, 2023 Assessment & Plan (1) Chest pain: (2) Pleuritic chest pain: (3) Hypertension: (4) Hyperlipidemia: (5) Glaucoma: (6) Hydropneumothorax: (7) Small airways disease: Plan Danisha Lemons is a 87 year-old female with past medical history of osteoporosis, hyperlipidemia, hypertension, and uterine cancer who presented to the ED due to chest pain which started last night. Pleuritic Chest Pain -Chest pain started last night, now improved since receiving nitro in ambulance and Tylenol in ED. Pain appears pleuritic in nature. -Troponin 11.1. D-dimer elevated 560. -EKG without acute findings. -CXR: no acute process -Chest CTA: no evidence of PE. 7 mm nodule within R middle lobe, recommend f/u CT in 6 months. Mosaic attenuation within lungs, small hydropneumothorax. -Concern that small hydropneumothorax may be cause of symptoms. Will also order Biofire to rule out viral etiology. -Will place on nonrebreather for 6 hours to see if symptoms improve. If symptoms fail to improve, would consider discussion with pulmonology regarding lung imaging findings/possible need for further workup. -No respiratory distress, 97% on room air. WBC 10k, afebrile- lower suspicion for infectious process at this time. Will repeat CBC in a.m. -Tylenol PRN for pain. Hypertension -Continue Olmesartan (total of 40mg daily) -Continue Hydralazine 10mg TID, Clonidine 0.2mg transdermal patch q7d (due for new patch tomorrow 02/23). Hyperlipidemia -Continue Lipitor 10mg qhs Hypothyroidism -Continue Levothyroxine 100mcg Glaucoma -Continue home eye drops VTE Prophylaxis: SCDs, early ambulation Diet: Heart Healthy Code Status: Full Code Dispo: Observation, Med-Tele History of Present Illness Primary Care Provider: Abdias Yoder MD Danisha Lemons is a 87 year-old female with past medical history of osteoporosis, hyperlipidemia, hypertension, and uterine cancer who presented to the ED due to chest pain. This pain began suddenly last night while sitting watching TV, she describes it as a sharp pain at left side of chest which extended below her left breast and towards her axilla. Symptoms worsened throughout the night and pain was noted with deep breaths which made her change her breathing pattern although she did not particularly feel short of breath. Staff from [facility] evaluated her this morning and gave her nitroglycerin, she was then brought via ambulance to ED (received another 3 doses of nitroglycerin enroute). She states that after the nitro and Tylenol in the ED, her pain is nearly gone. Some pain reproducible when palpation of left chest. She notes some fatigue in the past week but had otherwise been feeling well in the past few days. She had a routine dental cleaning on and received a dose of Clindamycin prior to the cleaning due to her hip replacement. She had heartburn afterwards but no other symptoms afterwards. She notes that she has had some exertional dyspnea over the past several years but denies any prior diagnoses of lung disease. She denies headache, nausea, fever/body aches/chills, changes in bowel or bladder habits, or dysuria. Allergies Allergy/AdvReac Type Severity Reaction Status Date / Time GOOD Inhibitors Allergy Intermediate Unknown Verified 02/22/23 11:59 adhesive tape Allergy Intermediate Blister Unverified 02/22/23 11:59 alendronate sodium Allergy Unknown Unknown Verified 02/22/23 11:59 [From Fosamax] cephalexin [From Keflex] Allergy Unknown Unknown Verified 02/22/23 11:59 guaifenesin Allergy Unknown Unknown Verified 02/22/23 11:59 Benzalkonium chloride (NIC) Allergy Intermediate Unknown Uncoded 02/22/23 11:59 Home Medications Medication Instructions Recorded Confirmed Type clonidine 0.2 mg/24 hr weekly 1 patch topical WEEKLY 04/19/19 02/22/23 History transdermal patch multivitamin (Daily Multi-Vitamin 1 tab PO QAM 05/25/19 02/22/23 History tablet) calcium carbonate 500 mg-vitamin 1 tab PO BID 09/12/20 02/22/23 History D3 10 mcg (400 unit) tablet (Calcium 500 + D) dorzolamide 2 %-timolol 0.5 % (PF) 1 drp OPB AMPM 09/12/20 02/22/23 History eye drops glucosamine 750 [id number] 1 tab PO BID 09/12/20 02/22/23 History no1 644 mg-C 30 mg-ev 1 mg tablet (Osteo Bi-Flex Triple Strength) tafluprost (PF) 0.0015 % eye drops 1 drp OPR HS 09/12/20 02/22/23 History in a dropperette (Zioptan (PF)) hydrocortisone 1 % topical ointment 1 applic EXT BID PRN itching #28 09/21/20 02/22/23 Rx grams cholecalciferol (vitamin D3) 50 50 mcg PO DAILY 12/18/21 02/22/23 History mcg (2,000 unit) capsule vitamin E (dl, acetate) 45 mg (100 45 mg PO DAILY 12/18/21 02/22/23 History unit) capsule denosumab 60 mg/mL subcutaneous 60 mg subcut .EVERY 6 MONTHS 12/25/21 02/22/23 History syringe (Prolia) econazole 1 % topical cream 1 applic topical DAILY 12/25/21 02/22/23 History atorvastatin 10 mg tablet (Lipitor) 5 mg PO HS 02/22/23 02/22/23 History hydralazine 10 mg tablet 10 mg PO TID SBP>160 02/22/23 02/22/23 History levothyroxine 100 mcg tablet 100 mcg PO QAM 02/22/23 02/22/23 History (Synthroid) olmesartan 20 mg tablet 20 mg PO QAM 02/22/23 02/22/23 History olmesartan 5 mg tablet 10 mg PO .PM AND HS 02/22/23 02/22/23 History Past Med/Surg History Medical History Closed left hip fracture Fall Fracture of femoral neck, right Glaucoma Hyperlipidemia (02/02/13) Hypertension Hypothyroidism (02/02/13) Osteoporosis Urge and stress incontinence Uterine cancer (02/02/13) 1998 s/p hysterectomy Surgical History H/O eye surgery laser History of back surgery Approximately 1980 History of hip replacement History of hysterectomy 1997 History of trabeculectomy x2 Hx of tonsillectomy [place] teeth extracted Family History Mother Cerebral aneurysm Stroke Grandfather Cerebral aneurysm Grandfather Stroke Aunt Stroke Family/Other Stroke niece Grandmother (Paternal) Stomach cancer Other Hypertension No family history of adverse response to anesthesia No family history of bleeding disorder Denies family history of Ovarian cancer Breast cancer Social History Smoking Status: Never smoker Do You Dip or Chew Tobacco: No; Hx Alcohol Use: No Hx Substance Use: No Preferred Language: Qatari Communication Ability: Effective 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 Beliefs That Will Affect Care: None Current Living Situation: Personal Care Facility current occupational status: retired Other Information That Helps Us Care for You: No Feels Safe at Home: Yes Safety Concerns: Feels Safe At This Time Assistive Devices: Walker Review of Systems Review of Systems: As per above Physical Exam Constitutional: WD/WN, vitals as above Eyes: PERRL, conjunctivae normal, anicteric sclerae ENMT: external ear and nose normal, oropharynx normal Neck: trachea midline, no thyromegaly Respiratory: normal respiratory effort; no respiratory distress and no cough Auscultation: lungs clear to auscultation bilaterally Cardiovascular: Rate/Rhythm: regular rate and regular rhythm Extremities: no edema Gastrointestinal (Abdomen): normal bowel sounds, soft, nontender, no hepatosplenomegaly Musculoskeletal: Extremities: extremities normal to inspection Skin: no rashes, warm and dry Psychiatric: A+Ox3, euthymic affect Results & Data Results & Data Vital Signs (Past 12 Hours) Vital Signs Temp Pulse Pulse Resp BP BP Pulse Ox 02/22/23 13:09 67 16 128/61 96 02/22/23 11:27 37.1 C 83 20 122/88 93 02/22/23 11:26 83 20 93 02/22/23 11:22 37.1 C 83 20 122/88 95 02/22/23 11:21 68 O2 Del Method 02/22/23 13:09 02/22/23 11:27 Room Air 02/22/23 11:26 Room Air 02/22/23 11:22 Room Air 02/22/23 11:21 Supervising Physician Co-Signing Physician Notes I personally saw and examined the patient. I verified all dean points and agree with resident physician Dr Alice Rodas, with the following exceptions and/or additions: 87 year old female presents to the ER with left sided sudden onset chest pain started last night, worse on inspiration, no worse on exertion. Associated shortness of breath. No worsening cough. No nasal congestion, sinus pain, fever or chills, ROS: chronic worsening shortness of breath on exertion progressive for the last 2 years. no chest pain on exertion. Dry cough. no cough/choking after eating. O/E A&Ox3, HS RRR, no murmurs, Chest CTAB without wheezing or crackles, inspiration limited by pain, reproducible pain over left sternum, not reproducible in left arm pit Labs, EKG and imaging independently reviewed A/P Chest pain / hydropneumothorax - she certainly has a MSK element to her pain however suspect this is secondary to her pneumothorax pain. Pneumothorax is only trace and suspect she would absorb this without intervention however will use 15 LPM non-rebreather for 6 hours and repeat CXR in AM just to make sure not getting larger. Small airways disease - unclear whether this is chronic vs. acute given her underlying shortness of breath on exertion which appears to be significantly progressive over the last 2 years with out a pulmonology workup and out of proportion to just her age. ?acute worsening due to recent air quality. I suspect whatever her underlying lung disease led to pleurisy and subsequent pneumothorax therefore will get pulmonology consult to see if any further inpatient workup recommended as biofire negative. Resident Activity Tracking Resident Involvement: Resident Care Provided Care Provided: Adult Hospital Medicine
[2023-02-22] MEDS ORDERED: ACETAMINOPHEN 325 MG TAB PO PRN (15:48)
[2023-02-22] MEDS ORDERED: NITROGLYCERIN SL 0.4 MG/TAB TAB SL PRN (15:48)
[2023-02-22] MEDS ORDERED: EMPTY 8 DRAM VIAL ONE (17:53)
[2023-02-22] MEDS ORDERED: ENOXAPARIN INJ 40 MG/0.4 ML SYR SQ SCH (18:00)
[2023-02-22 18:07] LABS: C Reactive Protein 0.85 mg/dl (0-0.5)
[2023-02-22 18:14] LABS: Troponin I High Sensitivity 11.1 pg/ml (0-14)
[2023-02-22] MEDS: CHECK CLONIDINE PATCH PLACEMENT SCH (18:30)
[2023-02-22 18:35] LABS: Adenovirus PCR Not Detected (NotDetected); Bordetella parapertussis PCR Not Detected (NotDetected); Bordetella pertussis PCR Not Detected (NotDetected); Chlamydia pneumoniae PCR Not Detected (NotDetected); Coronavirus 229E PCR Not Detected (NotDetected); Coronavirus CoV-2 (COVID19)PCR Not Detected (NotDetected); Coronavirus HKU1 PCR Not Detected (NotDetected); Coronavirus NL63 PCR Not Detected (NotDetected); Coronavirus OC43PCR Not Detected (NotDetected); Human Metapneumovirus PCR Not Detected (NotDetected); Influenza A PCR Not Detected (NotDetected); Influenza B PCR Not Detected (NotDetected); Mycoplasma pneumoniae PCR Not Detected (NotDetected); Parainfluenza Virus 1 PCR Not Detected (NotDetected); Parainfluenza Virus 2 PCR Not Detected (NotDetected); Parainfluenza Virus 3 PCR Not Detected (NotDetected); Parainfluenza Virus 4 PCR Not Detected (NotDetected); Respiratory Syncytial VirusPCR Not Detected (NotDetected); Rhinovirus/Enterovirus PCR Not Detected (NotDetected)
[2023-02-22] MEDS ORDERED: DORZOLAMIDE/TIMOLOL 22.3/6.8MG/ML 10 ML BTL OPB SCH (21:00)
[2023-02-22] MEDS ORDERED: ATORVASTATIN 10 MG PO SCH (21:00)
[2023-02-22] MEDS: TIMOLOL OPB SCH (21:28)
[2023-02-22] MEDS: DORZOLAMIDE OPB SCH (21:28)
[2023-02-22] MEDS: LOSARTAN POTASSIUM 25 MG TAB PO SCH (21:29)
[2023-02-22] MEDS: hydrALAZINE 10 MG TAB PO SCH (21:52)
[2023-02-23] MEDS ORDERED: [UNRECOGNIZED DRUG - OTHER] SCH
[2023-02-23] MEDS: CHECK CLONIDINE PATCH PLACEMENT SCH ×2 (01:11→09:15)
[2023-02-23 06:02] LABS: Basophils # (auto) 0.03 K/uL (0-0.2); Basophils % (auto) 0.4 %; Eosinophils # (auto) 0.16 K/uL (0-0.50); Hematocrit (blood only) 38.4 % (37.0-47.0); Immature Granulocytes # (auto) 0.01 K/uL (0.01-0.20); Immature Granulocytes % (auto) 0.1 %; Lymphocytes # (auto) 2.23 K/uL (1.2-3.4); Lymphocytes % (auto) 27.8 %; Mean Corpuscular Hgb Conc 33.9 g/dL (32.0-36.0); Mean Corpuscular Volume 91.4 fL (80.0-100.0); Mean Platelet Volume 9.6 fL (9.4-12.4); Monocytes # (auto) 0.99 K/uL (0.11-0.59); Monocytes % (auto) 12.3 %; Neutrophils % (auto) 57.4 %; Platelet Count 185 K/uL (130-400); RDW Coefficient of Variation 13.2 % (11.5-14.5); RDW Standard Deviation 43.9 fL (36.4-46.3); White Blood Count 8.02 K/ul (4.8-10.8)
[2023-02-23 06:23] LABS: Albumin Globulin Ratio 1.6 (0.9-2); Albumin Level 4.1 gm/dl (3.4-5.0); BUN Creatinine Ratio 20.5 (10-20); Bilirubin,Total 1.8 mg/dl (0.2-1.0); Calcium 8.7 mg/dl (8.6-10.3); Est GFR (African American) 78.7 ml/min; Est GFR (Non-African American) 67.9 ml/min; Globulin 2.5 gm/dl (2.5-4.0); Potassium 3.7 mmol/L (3.5-5.1); Total Protein 6.6 gm/dl (6.0-8.3)
[2023-02-23] MEDS ORDERED: SYNTHROID 100 MCG PO SCH (06:30)
--- NOTE | 2023-02-23 07:43 | Billing Data ---
Date of Service February 22, 2023 Coding Level of Care Code 90576 INT INP/OBS CARE
--- NOTE | 2023-02-23 07:52 | Hospitalist Progress Note ---
Date of Service February 23, 2023 Assessment & Plan (1) Chest pain: (2) Pleuritic chest pain: (3) Hypertension: (4) Hyperlipidemia: (5) Glaucoma: (6) Hydropneumothorax: Plan Pleuritic Chest Pain Chest pain has been chronic for years, worse recently Pain appears pleuritic in nature. Troponin 11.1. D-dimer elevated 560. EKG without acute findings. CXR: no acute process Chest CTA: no evidence of PE. 7 mm nodule within R middle lobe. Mosaic attenuation within lungs, small pneumothorax Pain greatly improved with oxygen therapy. Biofire to rule out viral etiology. Appreciate pulm recs No respiratory distress, 97% on room air. WBC 10k, afebrile- lower suspicion for infectious process at this time. Will repeat CBC in a.m. Tylenol PRN for pain. Hypertension Continue Olmesartan (total of 40mg daily) Continue Hydralazine 10mg TID, Clonidine 0.2mg transdermal patch q7d (due for new patch tomorrow 02/23). Hyperlipidemia Continue Lipitor 10mg qhs Hypothyroidism Continue Levothyroxine 100mcg Glaucoma Continue home eye drops VTE Prophylaxis: SCDs, early ambulation Diet: Heart Healthy Code Status: Full Code Dispo: Observation, Med-Tele Admission and Anticipated Discharge Date Admission Date: February 22, 2023 Supervising Physician Co-Signing Physician Notes I personally examined the patient and verified all dean points of history and exam, discussed case, and agree with decision making with Dr Ty robles doing much better and breathing much better. after discussion she notes progressive REYES as well as a chronic cough for ~2-3 years vitals notedNo acute distress. Breathing unlabored no accessory muscle use good effort. Skin shows no rashes no pallor or icterus. Spontaneous pneumothoraximproving. Safe/stable for home chronic cough/progressive exercise intolerancediscussed getting PFTs in about 6 weeks, she relates either a "stiff heart or a stiff valve" so discussed a repeat echo could also be useful, also discussed that her own working diagnosis of just getting old and then will be more straight than she used to be is also quite plausible. Pulmonary noduleoutpatient follow-up Subjective 87 yo female PMHx osteoporosis, HLD, HTN, uterine cancer admitted for L-chest pain. Pain described as sharp and extends below her breast and toward the axilla. Pain exacerbated by deep breaths. She relieved nitro and tylenol. Pain is slightly reproducible w/ palpation of L chest. She had some associated fatigue in the past week. Had a dental procedure recently and recieved a dose of clindamycin prior due to her hip replacement. Some exertional dyspnea, no hx of lung dx. Today pt is feeling much better. She was seen by pulmonology. Chest CT and CXR demonstrated very small pleural effusion that may be contributing to her symptoms. Otherwise, there is likely a MSK component to her pain as well. Denies Headache, N/V/D, fever, chills, difficulty with urination. Review of Systems Review of Systems: reviewed, see hpi Physical Exam Physical Exam: General: patient resting comfortably, NAD, non-toxic in appearance, AA&O x 4, answers questions appropriately and follows commands. Skin: warm, dry, intact, no rashes or lesions HEENT: NC/AT, anicteric sclera, conjunctiva without injection, external ear normal to inspection, nares patent, moist mucus membranes, dentition intact, neck supple, trachea midline, no thyromegaly, no JVD Heart: +S1/S2, regular, no m/r/g Lungs: equal air entry bilaterally, no rales/rhonchi/wheezes Abd: +BS, soft, NT/ND, no masses/organomegaly/ascites Ext: warm, no clubbing/cyanosis or edema Neuro: nonfocal, patient AA&O x 4, speech intact, no facial droop, moving all extremities on command. Results & Data Results & Data Vital Signs (Past 12 Hours) Vital Signs Temp Pulse Pulse Resp BP Pulse Ox O2 Del Method 02/23/23 04:13 37.0 C 67 18 129/67 94 Room Air 02/23/23 01:00 57 L 02/23/23 00:31 36.4 C L 66 18 163/62 H 96 Nasal Cannula 02/22/23 20:14 36.4 C L 68 18 162/72 H 96 Non-rebreather O2 Flow Rate 02/23/23 04:13 02/23/23 01:00 02/23/23 00:31 15 02/22/23 20:14 15 Laboratory Results Abnormal lab results 02/22/23 02/22/23 02/22/23 Range/Units 11:13 11:13 11:13 Neut # (Auto) 6.91 H (1.40-6.50) K/uL [place] # (Auto) 0.94 H (0.11-0.59) K/uL D-Dimer 560 H* (0-500) ug/L FEU Chloride 108 H (98-107) mmol/L BUN/Creatinine Ratio 27.4 H (10-20) Glucose 104 H (70-99(Fasting)) mg/dl Total Bilirubin 1.1 H (0.2-1.0) mg/dl C-Reactive Protein (0-0.5) mg/dl Globulin 2.4 L (2.5-4.0) gm/dl 02/22/23 02/23/23 02/23/23 Range/Units 17:36 05:41 05:41 Neut # (Auto) (1.40-6.50) K/uL [place] # (Auto) 0.99 H (0.11-0.59) K/uL D-Dimer (0-500) ug/L FEU Chloride 108 H (98-107) mmol/L BUN/Creatinine Ratio 20.5 H (10-20) Glucose (70-99(Fasting)) mg/dl Total Bilirubin 1.8 H D (0.2-1.0) mg/dl C-Reactive Protein 0.85 H (0-0.5) mg/dl Globulin (2.5-4.0) gm/dl Resident Activity Tracking Resident Involvement: Resident Care Provided Care Provided: Adult [facility] Medicine
--- NOTE | 2023-02-23 08:49 | XRay Report ---
XR chest 1V portable CLINICAL HISTORY: pneumothorax COMPARISON STUDY: Chest radiograph and chest CT February 22, 2023. FINDINGS: A trace left apical pneumothorax is unchanged. Cardiomegaly is again noted. There is no felton dence for pulmonary edema. No consolidation is present. Linear left basilar opacity favors atelectasi s. IMPRESSION: No change in a trace left apical pneumothorax. ACT 112: Negative or not required by law. Electronically signed by: Kumar Solis M.D. 02/23/2023 8:48 AM
[2023-02-23] MEDS ORDERED: LOSARTAN POTASSIUM 50 MG TAB PO SCH (09:00)
[2023-02-23] MEDS: hydrALAZINE 10 MG TAB PO SCH ×2 (09:04→14:56)
[2023-02-23] MEDS: DORZOLAMIDE OPB SCH (09:06)
[2023-02-23] MEDS: TIMOLOL OPB SCH (09:06)
--- NOTE | 2023-02-23 10:48 | Pulmonary Consultation ---
Date of Consultation February 23, 2023 Assessment & Plan (1) Chest pain: Chest pain type: unspecified Qualified Code(s): R07.9 - Chest pain, unspecified (2) Hydropneumothorax: Plan Impression: 87-year-old female admitted with chest discomfort which appears to be more musculoskeletal. Her imaging studies showed a questionable trace hydropneumothorax which is very small and unlikely to be clinically significant. She does have some faint groundglass opacities. Of note, the patient's shortness of breath and chest discomfort have been present for more than a decade. Recommendation: 1. Chest discomfort: Has been present for quite some time and may have been aggravated by the trace pneumothorax. Continue supportive care. No indication for additional work-up at this point time. 2. Pneumothorax: Reviewed chest x-ray this morning. No significant progression of the trace apical pneumothorax. No indication for intervention currently. 3. Mosaic attenuation of the lung: Unclear etiology. The patient had been ordered PFTs several years ago but these were never completed. She is not bronchospastic currently and I see no indication for steroids. Recommend outpatient PFTs in 6 weeks once the pneumothorax is resolved. If the patient is stable with ambulation, she can likely be dismissed from the hospital given the stability on her chest radiograph. Would recommend outpatient follow-up in 2 to 4 weeks with a repeat chest x-ray. Thanks for the opportunity participating in the care of this patient. Feel free to contact us with questions or concerns. Pulmonary will sign off at this point time History of Present Illness Attending Physician: Derick Montoya DO History of Present Illness Asked by hospitalist to evaluate this patient with complaints of chest discomfort and an abnormal CT scan. History is obtained from discussion with the patient as well as review the electronic medical record. The patient is an 87-year-old female non-smoker who I initially had the opportunity to evaluate back in 2019. At that point time she was seen for sh ortness of breath which has been progressive over 10 to 15 years. She has had chest pain going on since then as well. The pain has a musculoskeletal component and is worse with moving. It does have a pleuritic component to it. It does radiate up into her triceps area as well. Yesterday the pain became so severe that she was brought to the emergency room. She was studied with a CT scan which demonstrated potential trace hydropneumothorax although artifact is not excluded and the patient was admitted to the hospital for observation. This morning she states that the pain is better but not resolved completely. She denies any significant cough or sputum production. No fevers chills or night sweats. She is not wheezing. She does not use inhalers at home. She has no significant occupational or environmental exposures. She lives with her in a assisted care center. She has not had any ill contacts. Allergies Allergy/AdvReac Type Severity Reaction Status Date / Time GOOD Inhibitors Allergy Intermediate Unknown Verified 02/22/23 11:59 adhesive tape Allergy Intermediate Blister Unverified 02/22/23 11:59 alendronate sodium Allergy Unknown Unknown Verified 02/22/23 11:59 [From Fosamax] cephalexin [From Keflex] Allergy Unknown Unknown Verified 02/22/23 11:59 guaifenesin Allergy Unknown Unknown Verified 02/22/23 11:59 Benzalkonium chloride (NIC) Allergy Intermediate Unknown Uncoded 02/22/23 11:59 Home Medications Medication Instructions Recorded Confirmed Type clonidine 0.2 mg/24 hr weekly 1 patch topical WEEKLY 04/19/19 02/22/23 History transdermal patch multivitamin (Daily Multi-Vitamin 1 tab PO QAM 05/25/19 02/22/23 History tablet) calcium carbonate 500 mg-vitamin 1 tab PO BID 09/12/20 02/22/23 History D3 10 mcg (400 unit) tablet (Calcium 500 + D) dorzolamide 2 %-timolol 0.5 % (PF) 1 drp OPB AMPM 09/12/20 02/22/23 History eye drops glucosamine 750 dm-[id number]-vwy 1 tab PO BID 09/12/20 02/22/23 History no1 644 mg-C 30 mg-ev 1 mg tablet (Osteo Bi-Flex Triple Strength) tafluprost (PF) 0.0015 % eye drops 1 drp OPR HS 09/12/20 02/22/23 History in a dropperette (Zioptan (PF)) hydrocortisone 1 % topical ointment 1 applic EXT BID PRN itching #28 09/21/20 02/22/23 Rx grams cholecalciferol (vitamin D3) 50 50 mcg PO DAILY 12/18/21 02/22/23 History mcg (2,000 unit) capsule vitamin E (dl, acetate) 45 mg (100 45 mg PO DAILY 12/18/21 02/22/23 History unit) capsule denosumab 60 mg/mL subcutaneous 60 mg subcut .EVERY 6 MONTHS 12/25/21 02/22/23 History syringe (Prolia) econazole 1 % topical cream 1 applic topical DAILY 12/25/21 02/22/23 History atorvastatin 10 mg tablet (Lipitor) 5 mg PO HS 02/22/23 02/22/23 History hydralazine 10 mg tablet 10 mg PO TID SBP>160 02/22/23 02/22/23 History levothyroxine 100 mcg tablet 100 mcg PO QAM 02/22/23 02/22/23 History (Synthroid) olmesartan 20 mg tablet 20 mg PO QAM 02/22/23 02/22/23 History olmesartan 5 mg tablet 10 mg PO .PM AND HS 02/22/23 02/22/23 History Patient History Medical History Closed left hip fracture Fall Fracture of femoral neck, right Glaucoma Hyperlipidemia (02/02/13) Hypertension Hypothyroidism (02/02/13) Osteoporosis Urge and stress incontinence Uterine cancer (02/02/13) 1997 s/p hysterectomy Surgical History H/O eye surgery laser History of back surgery Approximately 1980 History of hip replacement History of hysterectomy 1997 History of trabeculectomy x2 Hx of tonsillectomy Nikolai teeth extracted Family History Mother Cerebral aneurysm Stroke Grandfather Cerebral aneurysm Grandfather Stroke Aunt Stroke Family/Other Stroke niece Grandmother (Paternal) Stomach cancer Other Hypertension No family history of adverse response to anesthesia No family history of bleeding disorder Denies family history of Ovarian cancer Breast cancer Social History Smoking Status: Never smoker Do You Dip or Chew Tobacco: No; Hx Alcohol Use: No Hx Substance Use: No Preferred Language: Welsh Communication Ability: Effective 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 No additions or deletions Physical Exam Constitutional: WD/WN, vitals as above Neck: trachea midline, no thyromegaly Respiratory: normal respiratory effort, lungs clear to auscultation Cardiovascular: RRR, no murmur, no edema Gastrointestinal (Abdomen): normal bowel sounds, soft, nontender, no hepatosplenomegaly Musculoskeletal: Extremities: extremities normal to inspection Skin: no rashes, warm and dry Neurologic: Nonfocal exam Lymphatic: no cervical lymphadenopathy Results & Data Results & Data Vital Signs (Past 12 Hours) Vital Signs Temp Pulse Pulse Resp BP Pulse Ox O2 Del Method 02/23/23 07:58 37.2 C 65 16 130/69 95 Room Air 02/23/23 04:13 37.0 C 67 18 129/67 94 Room Air 02/23/23 01:00 57 L 02/23/23 00:31 36.4 C L 66 18 163/62 H 96 Nasal Cannula O2 Flow Rate 02/23/23 07:58 02/23/23 04:13 02/23/23 01:00 02/23/23 00:31 15 Critical Care Results & Data Vital Signs (Past 12 Hours) Vital Signs Temp Pulse Pulse Resp BP Pulse Ox O2 Del Method 02/23/23 07:58 37.2 C 65 16 130/69 95 Room Air 02/23/23 04:13 37.0 C 67 18 129/67 94 Room Air 02/23/23 01:00 57 L 02/23/23 00:31 36.4 C L 66 18 163/62 H 96 Nasal Cannula O2 Flow Rate 02/23/23 07:58 02/23/23 04:13 02/23/23 01:00 02/23/23 00:31 15 Lab & Micro Results (Past 24 Hours) RBC 4.20 M/uL (4.20-5.40) 02/23/23 WBC 8.02 K/ul (4.8-10.8) 02/23/23 Hgb 13.0 g/dl (12.0-16.0) 02/23/23 Hct 38.4 % (37.0-47.0) 02/23/23 MCV 91.4 fL (80.0-100.0) 02/23/23 MCH 31.0 pg (25.0-34.0) 02/23/23 MCHC 33.9 g/dL (32.0-36.0) 02/23/23 RDW Standard Deviation 43.9 fL (36.4-46.3) 02/23/23 RDW Coefficient of Variation 13.2 % (11.5-14.5) 02/23/23 Plt Count 185 K/uL (130-400) 02/23/23 MPV 9.6 fL (9.4-12.4) 02/23/23 Neutrophils (%) (Auto) 57.4 % 02/23/23 Lymphocytes (%) (Auto) 27.8 % 02/23/23 Monocytes # (Auto) 0.99 K/uL (0.11-0.59) H 02/23/23 Eosinophils # (Auto) 0.16 K/uL (0-0.50) 02/23/23 Immature Granulocyte % (Auto) 0.1 % 02/23/23 Neutrophils # (Auto) 4.60 K/uL (1.40-6.50) 02/23/23 Lymphocytes # (Auto) 2.23 K/uL (1.2-3.4) 02/23/23 Monocytes # (Auto) 0.99 K/uL (0.11-0.59) H 02/23/23 Eosinophils # (Auto) 0.16 K/uL (0-0.50) 02/23/23 Basophils # (Auto) 0.03 K/uL (0-0.2) 02/23/23 Immature Granulocyte # (Auto) 0.01 K/uL (0.01-0.20) 3 Na 138 mmol/L (136-145) 02/23/23 K 3.7 mmol/L (3.5-5.1) 02/23/23 Cl 108 mmol/L (98-107) H 02/23/23 CO2 22 mmol/L (21-32) 02/23/23 Anion Gap 8 (3-11) 02/23/23 BUN 16 mg/dl (6-23) 02/23/23 Creatinine 0.78 mg/dl (0.6-1.2) 02/23/23 Estimated GFR ( Amer) 78.7 ml/min 02/23/23 Estimated GFR (Non-Af Amer) 67.9 ml/min 02/23/23 BUN/Creatinine Ratio 20.5 (10-20) H 02/23/23 Glu 96 mg/dl (70-99(Fasting)) 02/23/23 Ca 8.7 mg/dl (8.6-10.3) 02/23/23 Total Bilirubin 1.8 mg/dl (0.2-1.0) H 02/23/23 AST 18 U/L (13-39) 02/23/23 ALT 12 U/L (7-52) 02/23/23 Alkaline Phosphatase 41 U/L (34-104) 02/23/23 TP 6.6 gm/dl (6.0-8.3) 02/23/23 Albumin 4.1 gm/dl (3.4-5.0) 02/23/23 Globulin 2.5 gm/dl (2.5-4.0) 02/23/23 Albumin/Globulin Ratio 1.6 (0.9-2) 02/23/23 Calcium Level 8.7 mg/dl (8.6-10.3) 02/23/23 05:41 Prothromb Time International Ratio 1.0 (0.9-1.1) 02/22/23 11:1 3 Diagnostic Findings (Past 24 Hours) Chest X-Ray 02/22/23 11:07 XR chest 1V portable CLINICAL HISTORY: Chest pain, nonspecific COMPARISON STUDY: Chest radiograph December 23, 2021. FINDINGS: Lung volumes are normal. Lungs are clear. There is no pneumothorax or pleural effusion. Cardiac size is normal. Mediastinal contours are normal. There is no evidence for pulmonary edema. IMPRESSION: No acute cardiopulmonary findings. ACT 112: Negative or not required by law. Electronically signed by: Kumar Solis M.D. 02/22/2023 11:33 AM Chest CTA 02/22/23 12:20 CHEST CTA for PULMONARY ARTERIES CT DOSE: 609.74 mGy.cm HISTORY: Atypical chest pain. TECHNIQUE: Multiaxial CT images of the chest were performed following the intravenous administration of contrast to evaluate the pulmonary arteries. 3D/Maximal intensity projection images were also obtained. Sagittal and coronal reformations were also reviewed. A dose lowering technique was utilized adhering to the principles of ALARA. COMPARISON STUDY: Chest CT 02/02/2013. FINDINGS: Normal caliber thoracic aorta with no evidence for a dissection. The heart is mildly enlarged. There is a trace left pleural effusion. No pericardial effusion. Moderate coronary artery calcifications are noted. No filling defects within the pulmonary arteries to suggest a pulmonary embolus. The lingular subsegmental pulmonary arteries are partially obscured by motion artifact. No acute fractures identified. The central airways are patent. There is a small left pneumothorax. Patchy groundglass densities within the lungs likely related to air trapping. This can be seen in the setting of small airways disease. A low-grade pneumonitis is considered less likely but not entirely excluded. A 7 mm nodular density within the right middle lobe on image 69. Mild bronchial wall thickening. Normal caliber esophagus. Limited views of the upper abdomen demonstrate a normal liver and spleen. Normal adrenal glands. No mediastinal or hilar lymphadenopathy. Stable 3 mm nodule within the right middle lobe on image 94. IMPRESSION: 1. No evidence for a pulmonary embolus. 2. Small left hydropneumothorax. 3. Mosaic attenuation within the lungs is likely due to air trapping from small airways disease. A low-grade pneumonitis could also have a similar appearance but is considered less likely. 4. A 7 mm nodule within the right middle lobe. This favors an area of scarring or atelectasis. [address] follow-up can be performed to ensure stability/resolution. ACT 112: Negative or not required by law. Electronically signed by: Sergio Howard M.D. 02/22/2023 1:50 PM Chest X-Ray 02/23/23 07:00 XR chest 1V portable CLINICAL HISTORY: pneumothorax COMPARISON STUDY: Chest radiograph and chest CT February 22, 2023. FINDINGS: A trace left apical pneumothorax is unchanged. Cardiomegaly is again noted. There is no evidence for pulmonary edema. No consolidation is present. Linear left basilar opacity favors atelectasis. IMPRESSION: No change in a trace left apical pneumothorax. ACT 112: Negative or not required by law. Electronically signed by: Kumar Solis M.D. 02/23/2023 8:48 AM I & O Totals 24 Hours 02/22/23 02/23/23 02/24/23 06:59 06:59 06:59 Intake Total 425 / 425 Balance 425 / 425 Cumulative 02/22/23 10:22 thru 07/18/23 06:21 Intake Total 425 Balance 425 RT Ventilator Mngmt (Last Documented) Ventilator Ordered Settings Respiratory Rate 16 02/23/23 07:58 Ventilator - PT Measurements Respiratory Rate 16 PG Care Time/CCT Total # of Minutes Spent Total Time Spent with Patient: Total time spent is greater than 50% in coordination of care (as documented) at patient's floor/unit and/or counseling patient: Coding Level of Care Code 97936 INT INP/OBS CARE 2/55MIN Diagnoses Chest pain R07.9 Chest pain type: unspecified Hydropneumothorax J94.8
[2023-02-23] MEDS: LOSARTAN POTASSIUM 25 MG TAB PO SCH (14:56)
--- NOTE | 2023-02-23 18:03 | Discharge Summary ---
Date of Service February 23, 2023 Admission HPI Per Admitting Provider Danisha Beauchamp is a 87 year-old female with past medical history of osteoporosis, hyperlipidemia, hypertension, and uterine cancer who presented to the ED due to chest pain. This pain began suddenly last night while sitting watching TV, she describes it as a sharp pain at left side of chest which extended below her left breast and towards her axilla. Symptoms worsened throughout the night and pain was noted with deep breaths which made her change her breathing pattern although she did not particularly feel short of breath. Staff from [facility] evaluated her this morning and gave her nitroglycerin, she was then brought via ambulance to ED (received another 3 doses of nitroglycerin enroute). She states that after the nitro and Tylenol in the ED, her pain is nearly gone. Some pain reproducible when palpation of left chest. She notes some fatigue in the past week but had otherwise been feeling well in the past few days. She had a routine dental cleaning on and received a dose of Clindamycin prior to the cleaning due to her hip replacement. She had heartburn afterwards but no other symptoms afterwards. She notes that she has had some exertional dyspnea over the past several years but denies any prior diagnoses of lung disease. She denies headache, nausea, fever/body aches/chills, changes in bowel or bladder habits, or dysuria. Admission Exam Per Admitting Provider Constitutional: WD/WN, vitals as above Eyes: PERRL, conjunctivae normal, anicteric sclerae B ENMT: external ear and nose normal, oropharynx normal Neck: trachea midline, no thyromegaly Respiratory: normal respiratory effort; no respiratory distress and no cough Auscultation: lungs clear to auscultation bilaterally Cardiovascular: Rate/Rhythm: regular rate and regular rhythm Extremities: no edema Gastrointestinal (Abdomen): normal bowel sounds, soft, nontender, no hepatosplenomegaly Musculoskeletal: Extremities: extremities normal to inspection Skin: no rashes, warm and dry Psychiatric: A+Ox3, euthymic affect Principal Diagnosis pneumothorax Discharge Exam General: patient resting comfortably, NAD, non-toxic in appearance, AA&O x 4, answers questions appropriately and follows commands. Skin: warm, dry, intact, no rashes or lesions HEENT: NC/AT, anicteric sclera, conjunctiva without injection, external ear normal to inspection, nares patent, moist mucus membranes, dentition intact, neck supple, trachea midline, no thyromegaly, no JVD Heart: +S1/S2, regular, no m/r/g Lungs: equal air entry bilaterally, no rales/rhonchi/wheezes Abd: +BS, soft, NT/ND, no masses/organomegaly/ascites Ext: warm, no clubbing/cyanosis or edema Neuro: nonfocal, patient AA&O x 4, speech intact, no facial droop, moving all extremities on command. Discharge Data Allergies Allergy/AdvReac Type Severity Reaction Status Date / Time GOOD Inhibitors Allergy Intermediate Unknown Verified 02/22/23 11:59 adhesive tape Allergy Intermediate Blister Unverified 02/22/23 11:59 alendronate sodium Allergy Unknown Unknown Verified 02/22/23 11:59 [From Fosamax] cephalexin [From Keflex] Allergy Unknown Unknown Verified 02/22/23 11:59 guaifenesin Allergy Unknown Unknown Verified 02/22/23 11:59 Benzalkonium chloride (NIC) Allergy Intermediate Unknown Uncoded 02/22/23 11:59 Consultations 02/22/23 14:12 ED Decision to Admit Stat 02/22/23 20:32 Consult Pulmonology Routine Ordered Studies 02/22/23 12:20 CT angio chest PE protocol Stat Hospital Course (1) Chest pain: (2) Pleuritic chest pain: (3) Hypertension: (4) Hyperlipidemia: (5) Glaucoma: (6) Hydropneumothorax: Jalyn beauchamp was admitted with pleuritic chest pain. Imaging studies demonstrated a small pneumothorax. With oxygen therapy overnight her pain decreased dramatically helping to confirm that the pneumothorax was the likely cause of her pain. She was discharged home today without the need for rehab. She will have close follow up with her PCP, pulmonary for PFTs, and cardiology for decreased exercise tolerance. Pleuritic Chest Pain Chest pain has been chronic for years, worse recently Pain appears pleuritic in nature. Troponin 11.1. D-dimer elevated 560. EKG without acute findings. CXR: no acute process Chest CTA: no evidence of PE. 7 mm nodule within R middle lobe. Mosaic attenuation within lungs, small pneumothorax Pain greatly improved with oxygen therapy. Biofire to rule out viral etiology. Appreciate pulm recs No respiratory distress, 97% on room air. WBC 10k, afebrile- lower suspicion for infectious process at this time. Will repeat CBC in a.m. Tylenol PRN for pain. Hypertension Continue Olmesartan (total of 40mg daily) Continue Hydralazine 10mg TID, Clonidine 0.2mg transdermal patch q7d (due for new patch tomorrow 02/23). Hyperlipidemia Continue Lipitor 10mg qhs Hypothyroidism Continue Levothyroxine 100mcg Glaucoma Continue home eye drops VTE Prophylaxis: SCDs, early ambulation Diet: Heart Healthy Code Status: Full Code Dispo: Observation, Med-Tele Total Time Total Time Spent Total Time Spent (In Minutes): <30 Discharge Plan Discharge Items Patient Disposition: Home - Self-Care Reason For Visit: CHEST PAIN Discharge Diagnosis: spontaneous pneumothorax Activity: Resume your previous activity Non-emergency contact: Primary Care Provider Call non-emergency contact if: you have any medication questions and your symptoms worsen Follow-up/Referrals: Abdias Yoder MD [Primary Care Provider] - Diet: Regular Addtl Attending Provider Instructions: spontaneous pneumothorax (mildly collapsed lung) -this sort of thing happens surprisingly often - usually for no clear inciting factors. specifically with you, the CT of your chest was extremely reassuring - we didn't see any areas of emphysema (which can pop) or any areas of tumor (which can cause the lung to bulge away). most likely this either happened because, by "law of averages" this sort of thing happens to some people randomly, or it's also possible that there was a little backpressure from your coughing that led to pressure making your lung peel away from the chest wall -oxygen helps this sort of collapse get better faster - which is why it helped you feel better too. fortunately you're not needing the oxygen all the time (ie it was really just more to help with the symptoms and get the pneumothorax to improve more quickly) -this is unlikely to recur, but can - i certainly wouldn't want you worrying that this is a "time bomb" that could go off whenever - but at the same time if you feel a "rerun" of symptoms - please get evaluated right away chronic shortness of breath -while the current situation does not directly fit together with the shortness of breath you'd been feeling progressively, the progressive exercise intolerance is definitely something that we can look into further -the "big three" for causes would be anything to do with worsening of the "stiff heart" you mentioned they saw before, any kind of chronic lung disease/chronic bronchitis, or (as you're suspecting) just being in less good of shape than you'd like to be --->a good way to quickly get to the bottom of this will be to have dr yoder repeat the echocardiogram (ultrasound of your heart) if it's not been done recently; and in about 4-6wks get pulmonary function tests (lung volume measurements) (the reason to wait a month or so is to allow you to heal from the pneumothorax so it doesn't interfere with the results). if the echo looks the same and the pulmonary function tests look good, then it would be your "working diagnosis" of being in less good of shape than you'd like to be. if the echo looks more stiff - then dr yoder can help manage that. if the pulmonary function tests show any kind of airflow disease, then certain inhalers can be pretty helpful lung nodule -on the opposite side of the pneumothorax, the radiologist saw a small lung nodule on your CT scan - to my review it's actually barely noticeable - but we don't want to ignore it. it's most likely old scar tissue (potentially something you inhaled years ago) - but we'll ask dr yoder to follow up on it (usually repeat imaging in a few months) Pending Studies at Discharge: No Stand-Alone Forms: My [facility], Smoking Cessation Medications and DC Order Prescriptions: Continued clonidine 0.2 mg/24 hr patch weekly 1 patch topical WEEKLY Rx Instructions: CHANGE PATCH EVERY WEDNESDAY multivitamin [Daily Multi-Vitamin] tablet 1 tab PO QAM vitamin E (dl, acetate) 45 mg (100 unit) capsule 45 mg PO DAILY cholecalciferol (vitamin D3) 50 mcg (2,000 unit) capsule 50 mcg PO DAILY Prolia 60 mg/mL syringe 60 mg subcut .EVERY 6 MONTHS econazole 1 % cream 1 applic topical DAILY tafluprost (PF) [Zioptan (PF)] 0.0015 % Dropperette 1 drp OPR HS dorzolamide-timolol (PF) 2-0.5 % Drops 1 drp OPB AMPM calcium carbonate-vitamin D3 [Calcium 500 + D] 500 mg(1,250mg) -400 unit Tablet 1 tab PO BID Osteo Bi-Flex Triple Strength 750 mg-644 mg- 30 mg-1 mg Tablet 1 tab PO BID Rx Instructions: UNKNOWN STRENGTH hydrocortisone 1 % Ointment 1 applic EXT BID PRN (Reason: itching) Qty: 28 0RF hydralazine 10 mg tablet 10 mg PO TID atorvastatin [Lipitor] 10 mg tablet 5 mg PO HS Rx Instructions: Pt must take name brand levothyroxine [Synthroid] 100 mcg tablet 100 mcg PO QAM Rx Instructions: Pt must have name brand only olmesartan 5 mg tablet 10 mg PO .PM AND HS olmesartan 20 mg tablet 20 mg PO QAM Discharge Orders: Discharge Order (Routine); Ordered 02/23/23 Ordered By: Derick Montoya Admission Data Admit Date/Time: 02/22/23 15:08 Attending Provider: Derick Montoya Admit Provider: Alice Rodas Primary Care Provider: Abdias Yoder Other Providers: Brando Salinas ; Dale Braun Other Interventions: Discharge Summary Assessment (RN) Last Done: 02/23/23 15:47 Supervising Physician Co-Signing Physician Notes I personally examined the patient and verified all dean points of history and exam, discussed case, and agree with decision making with Dr Ty robles doing much better and breathing much better. after discussion she notes progressive REYES as well as a chronic cough for ~2-3 years vitals notedNo acute distress. Breathing unlabored no accessory muscle use good effort. Skin shows no rashes no pallor or icterus. Spontaneous pneumothoraximproving. Safe/stable for home chronic cough/progressive exercise intolerancediscussed getting PFTs in about 6 weeks, she relates either a "stiff heart or a stiff valve" so discussed a repeat echo could also be useful, also discussed that her own working diagnosis of just getting old and then will be more straight than she used to be is also quite plausible. Pulmonary noduleoutpatient follow-up Resident Activity Tracking Resident Involvement: Resident Care Provided Care Provided: Adult Hospital Medicine
--- NOTE | 2023-02-23 19:21 | Billing Data ---
Date of Service February 23, 2023 Coding Level of Care Code 33142 IN/OBS DISCH 30 MIN/LESS
== END 2023-02-23 16:24 | disposition home or self-care (01) ==
LOC: EDINP 10:54 → ED 10:54 → SUATTDRO 15:08 → 2W 15:13